=== PATIENT | female | born 1940 | race Caucasian/White ===

== ENCOUNTER 2018-12-24 22:00 | Emergency (ER) | payer OTHER ==
--- NOTE | 2018-12-24 22:35 | ED Physician Documentation ---
Fall - HISTORIAN Historian: patient - HPI Chief Complaint: Fall Onset: just prior to arrival Where: home r: moderate Associated Symptoms:: no loss of consciousness Location of Pain/Injury: face Further Comments: yes (78 year old female patient brought in by family for evaluation after a fall from standing. Patient slipped off her bed and hit her face on the bedside table. No LOC. Presents with nose bleed. C/O right hand pain; 4th finger deformity.) - ROS CONST: no problems NEURO: denies: dizziness, anxiety, depression, other MS/SKIN/LYMPH: denies: weakness, numbness, neck pain, back pain, ankle swelling, leg swelling, rash, other EYES/ENT: none CVS/RESP: none GI/: denies: problems urinating, nausea, vomiting, other - PAST HX Past History: other (CVA, ) Allergies/Adverse Reactions: Allergies Allergy/AdvReac Type Severity Reaction Status Date / Time No Known Allergies Allergy Verified 03/22/16 13:04 Home Medications: Ambulatory Orders Medication Instructions Recorded NK 06/05/13 - SOCIAL HX Smoking History: denies: cigarettes - FAMILY HX Family History: denies: none - VITAL SIGNS Vital Signs: Vital Signs Temp Pulse Resp BP Pulse Ox 149/61 03/22/16 14:16 - REVIEWED ASSESSMENTS Nursing Assessment Reviewed: No Vitals Reviewed: No ED Results Lab/Radiology - Radiology Radiology Impressions: Three views right hand Clinical history: Fall. Deformity of the 4th finger. Findings: Examination of the right hand in palmar, lateral and oblique views demonstrates degenerative changes with narrowing of the interphalangeal joints worse distally. There is mild narrowing of the radiocarpal and lateral intercarpal joints. There is no evident fracture and no lytic or blastic lesion. Impression: 1. Degenerative changes. 2. No fracture. Electronically signed on Dec 24, 2018 11:32:40 PM CDT by: Anupam Velazco CT of the facial bones Clinical history: Fall. Nasal pain and swelling. Technique: CT of the facial bones is performed in contiguous axial slices with sagittal and coronal reconstructions. Findings: Zygomatic arches are intact as is the anterior maxillary spine. There is a minimally depressed fracture of the tip of the nasal bones. There is nasal septal deviation. Bony margins of the orbits are intact. The extraocular muscles and optic nerves are symmetric. Orbital fat is preserved. Mucosal thickening is evident in the ethmoid air cells. Mandibular condyle is in the temporal fossa bilaterally. Mild spondylitic changes are seen the visualized cervical vertebrae. Impression: 1. Minimally depressed fracture of the tip of the nasal bones. 2. Chronic paranasal sinus changes. Electronically signed on Dec 24, 2018 11:40:02 PM CDT by: Anupam Juan Aartemio Schmidt Physical Exam - Physical Exam General Appearance: mild distress Head: non-tender, no swelling, no obvious injury Eye: TEN ENT: no dental injury, no oral injury, airway nml, clotted nasal blood (mild drainage) Resp/CVS: chest non-tender, no ecchymosis, breath sounds nml, no resp. distress, heart sounds nml Abdomen: soft, no organomegaly, normal bowel sounds, no abdominal bruit, no distension Neuro: oriented x3, CN's nml as tested, sensation nml, motor nml, mood/affect nml, composing machine operator nml, reflexes nml, composing machine operator symmetrical Back: normal inspection, no CVA tenderness Extremities: atraumatic, pelvis stable, hips non-tender, no pedal edema, nml ROM, nml color/temp, other (4th fourth digit with flexed DIP joint. ) - Rufus Coma Score Eyes Open: Spontaneous Speech: Oriented Motor: Obeys Commands Discharge Clincal Impression: Deviated nasal septum, Mallet finger of right finger(s) Nasal bone fracture Qualifiers: Encounter type: initial encounter Fracture type: closed Qualified Code(s): S02.2XXA - Fracture of nasal bones, initial encounter for closed fracture Referrals: Carolina Chung, PRN [Primary Care Provider] - 2 Days Additional Instructions: Diagnosis: Nasal fracture; deviated septum Make a follow up appointment with ENT [facility] Return to ER if if you have any of the follow symptoms: 1.Extremely sleepy or confused 2.Severe or worsening headache 3.Seizure 4.Vomiting, fever >101.5, or stiff neck 5.Loss of control or urine or bowel 6.Trouble walking 7.Use Tylenol every 4 hours as needed for Headache 8.Diet: Start with Clear liquids and advance diet as tolerated. 9.Follow up with your doctor in 2-3 days. Diagnosis: Acute Mallet Finger Wear your splint at all times. You may remove to shower. Make a follow up appointment with orthopedics for further evaluation. Condition: Stable Disposition: 01 HOME, SELF-CARE Decision to Admit: NO Decision Time: 23:43
[2018-12-25 00:31] VITALS: BP 142/63
--- NOTE | 2018-12-25 05:22 | Diagnostic Imaging Report ---
BAKARI OCNN (PHOTOTYPESETTING EQUIPMENT MONITOR) - ER [facility] [address] [address] Report Submission Date: Dec 24, 2018 11:32:40 PM CDT Patient Study Name: JERMAINE GONZALEZ Date: Dec 24, 2018 10:52:06 PM CDT Modality Type: DX Gender: F Description: HAND 3 VIEWS OR MORE : 42 Institution: [facility] Physician: BAKARI CONN (PHOTOTYPESETTING EQUIPMENT MONITOR) - ER Three views right hand Clinical history: Fall. Deformity of the 4th finger. Findings: Examination of the right hand in palmar, lateral and oblique views demonstrates degenerative changes with narrowing of the interphalangeal joints worse distally. There is mild narrowing of the radiocarpal and lateral intercarpal joints. There is no evident fracture and no lytic or blastic lesion. Impression: 1. Degenerative changes. 2. No fracture. Electronically signed on Dec 24, 2018 11:32:40 PM CDT by: Anupam MADISON
--- NOTE | 2018-12-25 05:22 | Diagnostic Imaging Report ---
BAKARI CONN (PREPRESS OPERATOR) - ER [facility] [address] [facility] [address] [place], [place]. [address] Report Submission Date: Dec 24, 2018 11:40:02 PM CDT Patient Study Name: JERMAINE GONZALEZ Date: Dec 24, 2018 10:46:42 PM CDT Modality Type: CT\SR Gender: F Description: CT MAXILLOFACIAL W/O D : 42 Institution: [facility] Physician: BAKARI CONN (PREPRESS OPERATOR) - ER CT of the facial bones Clinical history: Fall. Nasal pain and swelling. Technique: CT of the facial bones is performed in contiguous axial slices with sagittal and coronal reconstructions. Findings: Zygomatic arches are intact as is the anterior maxillary spine. There is a minimally depressed fracture of the tip of the nasal bones. There is nasal septal deviation. Bony margins of the orbits are intact. The extraocular muscles and optic nerves are symmetric. Orbital fat is preserved. Mucosal thickening is evident in the ethmoid air cells. Mandibular condyle is in the temporal fossa bilaterally. Mild spondylitic changes are seen the visualized cervical vertebrae. Impression: 1. Minimally depressed fracture of the tip of the nasal bones. 2. Chronic paranasal sinus changes. Electronically signed on Dec 24, 2018 11:40:02 PM CDT by: Anupam MADISON
== END 2018-12-24 23:56 | disposition home or self-care (01) ==
LOC: ED 22:00
DX: S02.2XXA Fracture of nasal bones, initial encounter for closed fracture (principal); J34.2 Deviated nasal septum; M20.011 Mallet finger of right finger(s); W06.XXXA Fall from bed, initial encounter; Y93.89 Activity, other specified; Y92.003 Bedroom of unspecified non-institutional (private) residence as the place of occurrence of the external cause
CPT/HCPCS: 70486; 73130; 99284; 99285